=== PATIENT | male | born 1955 | race African-American/Black ===

== ENCOUNTER → 2017-03-08 | Outpatient (CLI) | payer OTHER ==
--- NOTE | 2017-03-08 10:24 | CT ---
EXAMINATION TYPE: CT hip LT wo con DATE OF EXAM: 03/08/2017 8:54 AM COMPARISON: NONE HISTORY: Lt hip pain CT DLP: 287.2 mGycm Automated exposure control for dose reduction was used. FINDINGS: There is a left hip pin present. 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 Advanced degenerative changes within the left hip within the [id number]. This would include s ubchondral cyst formation, Femoral head deformity, Loss of the joint space. IMPRESSION: ADVANCED DEGENERATIVE JOINT CHANGE LEFT HIP WITH SUBCHONDRAL CYST FORMATION, IRREGULARITY OF THE ACET ABULUM AND FEMORAL HEAD AND LOSS OF THE JOINT SPACE.
== END | disposition home or self-care (01) ==
LOC: RADCTMAIN 08:25
PROVIDERS: ATTEND Family Medicine
DX: M16.12 Unilateral primary osteoarthritis, left hip (principal); M25.852 Other specified joint disorders, left hip

== ENCOUNTER 2024-04-15 17:24 | Emergency (ER) | payer OTHER ==
[2024-04-15 18:13] VITALS: RESP 18; TEMP 98.2
--- NOTE | 2024-04-15 18:19 | ED ---
General Adult HPI - General Chief complaint: Fall Stated complaint: leg pain Time Seen by Provider: 04/15/24 18:16 Source: patient, EMS Mode of arrival: EMS Limitations: no limitations - History of Present Illness Initial comments: Patient presents to the ED by ambulance for evaluation status post mechanical fall. Patient states that he was cooking some meat this evening when he turned and his knees buckled and he felt them "crack", causing him to fall to the ground. Patient is currently complaining of having bilateral knee pain. Patient states that he has had right knee replacement surgery. Patient denies any other injury or site of pain, weakness or dizziness, syncope/LOC, head injury, headache, focal numbness/weakness/neuro deficit, neck/back/upper extremity/hip pain, chest pain, dyspnea, palpitations, abdominal pain, nausea or vomiting, or any other symptoms or complaints. Patient states that his tetanus is up-to-date. - Related Data Home Medications Medication Instructions Recorded Confirmed Gabapentin 300 mg PO QID PRN 11/05/14 01/22/15 Phenytoin Sodium Extended 100 mg PO DAILY 11/05/14 01/22/15 [Dilantin] traMADol HCL [Tramadol HCl] 50 mg PO Q6H PRN 11/05/14 01/22/15 Previous Rx's Medication Instructions Recorded Aspirin EC [Ecotrin] 325 mg PO DAILY #30 tablet. 12/12/14 Famotidine [Pepcid] 40 mg PO HS #30 tab 12/12/14 Metoprolol Succinate [Toprol XL] 25 mg PO DAILY #30 tab 12/12/14 Acetaminophen-Codeine 300-30mg 1 tab PO Q8H PRN #30 tablet 12/24/14 [Tylenol w/codeine #3] Omeprazole [PriLOSEC] 20 mg PO AC-BID #60 cap 12/24/14 Ondansetron Odt [Zofran ODT] 4 mg PO Q8HR PRN #30 tab 12/24/14 Sucralfate [Carafate] 1 gm PO BID #60 tablet 12/24/14 Allergies Allergy/AdvReac Type Severity Reaction Status Date / Time No Known Allergies Allergy Verified 01/22/15 10:18 Review of Systems ROS Statement: Those systems with pertinent positive or pertinent negative responses have been documented in the HPI. ROS Other: All systems not noted in ROS Statement are negative. Past Medical History Past Medical History: Chest Pain / Angina, Osteoarthritis (OA), Seizure Disorder, Skin Disorder Additional Past Medical History / Comment(s): last seizure March 2014, sore left third toe GOES TO [facility] WEEKLY ON TUESDAYS, ARTHRITIS,NEUROPATHY History of Any Multi-Drug Resistant Organisms: None Reported Past Surgical History: No Surgical Hx Reported Additional Past Surgical History / Comment(s): LEFT THIRD TOE DEBRIDEMENT Past Anesthesia/Blood Transfusion Reactions: No Reported Reaction Additional Past Anesthesia/Blood Transfusion Reaction / Comment(s): never has had anesthesia Past Psychological History: No Psychological Hx Reported Past Alcohol Use History: Occasional Past Drug Use History: None Reported - Past Family History Father Family Medical History: Myocardial Infarction (AR) Mother Family Medical History: No Reported History General Exam Limitations: no limitations General appearance: alert Head exam: Present: atraumatic, normocephalic Eye exam: Present: normal appearance, EOMI ENT exam: Present: mucous membranes moist Neck exam: Present: normal inspection, full ROM. Absent: tenderness Respiratory exam: Present: normal lung sounds bilaterally. Absent: respiratory distress, wheezes, rales, rhonchi, stridor, chest wall tenderness Cardiovascular Exam: Present: regular rate, normal rhythm, normal heart sounds, other (Normal radial and dorsalis pedis pulses bilaterally) GI/Abdominal exam: Present: soft. Absent: distended, tenderness, guarding Extremities exam: Present: other (Pelvis is stable and nontender; mild right knee tenderness; superficial abrasions are noted over the patient's left upper tibial region with surrounding tenderness; left lateral ankle swelling and tenderness; no left knee tenderness is noted on exam; patient has full ROM at bilateral hips and knees) Back exam: Present: normal inspection. Absent: tenderness Neurological exam: Present: alert, oriented X3. Absent: motor sensory deficit Skin exam: Present: warm, dry, normal color Course Vital Signs 04/15/24 17:51 Temperature 98.2 F Pulse Rate 85 Respiratory 18 Rate O2 Sat by Pulse 103 H Oximetry - Reevaluation(s) Reevaluation #1: 04/15/24 21:02 Case was discussed with [facility] transfer center. Ambulance transfer to the [facility] ED was accepted by ED physician, Dr. Escobar, and orthopedic surgeon, Dr. Forman. 04/15/24 21:16 Patient denies development of any new pain or symptoms while in the ED. Patient is aware of his test results, and he agrees with transfer to [facility] at this time for further evaluation and management of his fractures. EKG Findings - EKG Comments: EKG Findings:: ED physician interpretation (interpreted by me): Normal sinus rhythm, ventricular rate of 83 bpm, no ectopy, normal SD and QRS intervals, normal QT interval, normal axis, voltage criteria for LVH, inferior and a nterolateral T wave abnormality, no ST elevation Medical Decision Making - Medical Decision Making Was pt. sent in by a medical professional or institution (, PA, RN IV THERAPY, urgent care, hospital, or long-term...) When possible be specific @ -No Did you speak to anyone other than the patient for history (EMS, parent, family, police, friend...)? What history was obtained from this source @ -No Did you review nursing and triage notes (agree or disagree)? Why? @ -I reviewed and agree with nursing and triage notes Were old charts reviewed (outside hosp., previous admission, EMS record, old EKG, old radiological studies, urgent care reports/EKG's, long-term records)? Report findings @ -No old charts were reviewed Differential Diagnosis (chest pain, altered mental status, abdominal pain women, abdominal pain men, vaginal bleeding, weakness, fever, dyspnea, syncope, headache, dizziness, GI bleed, back pain, seizure, CVA, palpatations, mental health, musculoskeletal)? @ -Fall, fracture, sprain, strain, dislocation, contusion, abrasion EKG interpreted by me (3pts min.). @ -As above X-rays interpreted by me (1pt min.). @ -Pelvis, bilateral knee, bilateral tib/fib and left ankle x-rays were all reviewed myself. X-rays demonstrate comminuted fracture of = proximal left tibia, as well as fracture of the right distal femur. I agree with the radiologist's interpretations as above. CT interpreted by me (1pt min.). @ -None done U/S interpreted by me (1pt. min.). @ -None done What testing was considered but not performed or refused? (CT, X-rays, U/S, labs)? Why? @ -None What meds were considered but not given or refused? Why? @ -None Did you discuss the management of the patient with other professionals (professionals i.e. Dr., PA, RN IV THERAPY, lab, RT, psych nurse, social media developer, bacteriology research assistant, teacher, property disposal officer, onsite case manager)? Give summary @ -As above. Was smoking cessation discussed for >3mins.? @ -No Was critical care preformed (if so, how long)? @ -No Were there social determinants of health that impacted care today? How? (Homelessness, low income, unemployed, alcoholism, drug addiction, transportation, low edu. Level, literacy, decrease access to med. care, skilled nursing, rehab)? @ -No Was there de-escalation of care discussed even if they declined (Discuss DNR or withdrawal of care, Hospice)? DNR status @ -No What co-morbidities impacted this encounter? (DM, HTN, Smoking, COPD, CAD, Cancer, CVA, ARF, Chemo, Hep., AIDS, mental health diagnosis, sleep apnea, morbid obesity)? @ -None Was patient admitted / discharged? Hospital course, mention meds given and route, prescriptions, significant lab abnormalities, going to OR and other pertinent info. @ -X-rays demonstrate small left tibial fracture and distal right femur fracture. Patient is also noted to have moth-eaten appearing bone lesions concerning for possible metastatic disease. Given concern for pathologic fractures, will transfer the patient to a tertiary care facility. Patient reports that he has been followed by orthopedic surgery at [facility] in the past, so arrangements were made to transfer the patient there. Patient agrees with this plan. Patient will be placed in bilateral knee immobilizers prior to transfer. Undiagnosed new problem with uncertain prognosis? @ -No Drug Therapy requiring intensive monitoring for toxicity (Heparin, Nitro, Insulin, Cardizem)? @ -No Were any procedures done? @ -No Diagnosis/symptom? @ -Proximal left tibial fracture, distal right femur fracture Acute, or Chronic, or Acute on Chronic? @ -Acute Uncomplicated (without systemic symptoms) or Complicated (systemic symptoms)? @ -Default Side effects of treatment? @ -No Exacerbation, Progression, or Severe Exacerbation? @ -No Poses a threat to life or bodily function? How? (Chest pain, [place], AR, pneumonia, PE, COPD, DKA, ARF, appy, cholecystitis, CVA, Diverticulitis, Homicidal, Suicidal, threat to staff... and all critical care pts) @ -No - Lab Data Result diagrams: 04/15/24 18:13 04/15/24 18:13 Lab Results 04/15/24 04/15/24 04/15/24 Range/Units 18:13 18:13 18:13 WBC 6.8 (3.8-10.6) k/uL RBC 2.97 L (4.30-5.90) m/uL Hgb 9.9 L (13.0-17.5) gm/dL Hct 30.4 L (39.0-53.0) % MCV 102.3 H (80.0-100.0) fL MCH 33.3 (25.0-35.0) pg MCHC 32.5 (31.0-37.0) g/dL RDW 13.1 (11.5-15.5) % Plt Count 192 (150-450) k/uL MPV 9.3 Neutrophils % 65 % Lymphocytes % 26 % Monocytes % 6 % Eosinophils % 0 % Basophils % 1 % Neutrophils # 4.4 (1.3-7.7) k/uL Lymphocytes # 1.8 (1.0-4.8) k/uL Monocytes # 0.4 (0-1.0) k/uL Eosinophils # 0.0 (0-0.7) k/uL Basophils # 0.0 (0-0.2) k/uL Macrocytosis Slight PT (10.0-12.5) sec INR (<1.2) APTT (22.0-30.0) sec Sodium 135 L (137-145) mmol/L Potassium 3.5 (3.5-5.1) mmol/L Chloride 89 L (98-107) mmol/L Carbon Dioxide 29 (22-30) mmol/L Anion Gap 17 mmol/L BUN 16 (9-20) mg/dL Creatinine 1.40 H (0.66-1.25) mg/dL Est GFR (CKD-EPI)AfAm 60 (>60 ml/min/1.73 sqM) Est GFR (CKD-EPI)NonAf 51 (>60 ml/min/1.73 sqM) Glucose 100 H (74-99) mg/dL Calcium 8.2 L (8.4-10.2) mg/dL Troponin I <0.012 (0.000-0.034) ng/mL 04/15/24 Range/Units 19:23 WBC (3.8-10.6) k/uL RBC (4.30-5.90) m/uL Hgb (13.0-17.5) gm/dL Hct (39.0-53.0) % MCV (80.0-100.0) fL MCH (25.0-35.0) pg MCHC (31.0-37.0) g/dL RDW (11.5-15.5) % Plt Count (150-450) k/uL MPV Neutrophils % % Lymphocytes % % Monocytes % % Eosinophils % % Basophils % % Neutrophils # (1.3-7.7) k/uL Lymphocytes # (1.0-4.8) k/uL Monocytes # (0-1.0) k/uL Eosinophils # (0-0.7) k/uL Basophils # (0-0.2) k/uL Macrocytosis PT 11.0 (10.0-12.5) sec INR 1.0 (<1.2) APTT 25.3 (22.0-30.0) sec Sodium (137-145) mmol/L Potassium (3.5-5.1) mmol/L Chloride (98-107) mmol/L Carbon Dioxide (22-30) mmol/L Anion Gap mmol/L BUN (9-20) mg/dL Creatinine (0.66-1.25) mg/dL Est GFR (CKD-EPI)AfAm (>60 ml/min/1.73 sqM) Est GFR (CKD-EPI)NonAf (>60 ml/min/1.73 sqM) Glucose (74-99) mg/dL Calcium (8.4-10.2) mg/dL Troponin I (0.000-0.034) ng/mL - Radiology Data Pelvis x-ray: 1. No acute osseous abnormality radiographically apparent. 2. Advanced degenerative changes. Bilateral knee x-rays: 1. Fracture of the distal metaphyseal right femur. 2. Comminuted fracture of the proximal metadiaphyseal left tibia. Right tib/fib x-rays: 1. No acute osseous abnormality right tibia and fibula. Left tib/fib x-rays: 1. Comminuted fracture proximal tibial metadiaphysis. 2. A moth-eaten appearance to the tibia and fibula. Underlying metastasis should be considered. Left ankle x-rays: 1. No acute fracture identified. 2. There appears to be some cortical elevation in walking appearance. Underlying metastases should be considered. Disposition Clinical Impression: Fall, Left tibial fracture, Right femoral fracture, Bone lesion Disposition: OTHER INSTITUTION NOT DEFINED Condition: Stable Is patient prescribed a controlled substance at d/c from ED?: No Referrals: Abner Sanchez MD [Primary Care Provider] - 1-2 days Time of Disposition: 21:02 - Out of Hospital Transfer - Req. Specs Out of Hospital Transfer - Requested Specifics: Other Emergency Center ([facility])
[2024-04-15 18:45] LABS: Basophils % (A) 1 %; Eosinophils % (A) 0 %; HCT 30.4 % (39.0-53.0); HGB 9.9 gm/dL (13.0-17.5); Lymphocytes # (A) 1.8 k/uL (1.0-4.8); Lymphocytes % (A) 26 %; MCH 33.3 pg (25.0-35.0); MCHC 32.5 g/dL (31.0-37.0); MCV 102.3 fL (80.0-100.0); Macrocytosis Slight; Mean Platelet Volume 9.3; Monocytes # (A) 0.4 k/uL (0-1.0); Monocytes % (A) 6 %; Neutrophils # (A) 4.4 k/uL (1.3-7.7); Neutrophils % (A) 65 %; Platelet Count 192 k/uL (150-450); RBC 2.97 m/uL (4.30-5.90); RDW 13.1 % (11.5-15.5); WBC 6.8 k/uL (3.8-10.6)
[2024-04-15 18:51] LABS: African American GFR (CKD) 60 (>60 ml/min/1.73 sqM); Anion Gap 17 mmol/L; Blood Urea Nitrogen 16 mg/dL (9-20); Calcium 8.2 mg/dL (8.4-10.2); Carbon Dioxide 29 mmol/L (22-30); Chloride 89 mmol/L (98-107); Glucose 100 mg/dL (74-99); Non-African American GFR(CKD) 51 (>60 ml/min/1.73 sqM); Potassium 3.5 mmol/L (3.5-5.1); Sodium 135 mmol/L (137-145)
[2024-04-15 19:47] LABS: Partial Thromboplastin Time 25.3 sec (22.0-30.0)
[2024-04-15] MEDS: HYDROmorphone 1 MG/ML 1 ML SYRINGE IVP STA ×2 (19:47→21:39)
--- NOTE | 2024-04-15 20:15 | XR ---
EXAMINATION TYPE: XR pelvis AP view DATE OF EXAM: 04/15/2024 COMPARISON: None HISTORY: Fall, pain TECHNIQUE: AP pelvis FINDINGS: There is a prior left hip pinning. There are advanced degenerative hip changes bilaterally. No acute fractures identified. Sacroiliac joints and symphysis pubis are normal. Fecal debris is with in the rectum. IMPRESSION: 1. No acute osseous abnormality radiographically apparent. 2. Advanced degenerative changes.
--- NOTE | 2024-04-15 20:17 | XR ---
EXAMINATION TYPE: XR tibia fibula LT DATE OF EXAM: 04/15/2024 COMPARISON: None HISTORY: Fall, pain TECHNIQUE: Left tibia and fibula is examined in 2 projections. FINDINGS: There is a comminuted fracture of the proximal metadiaphyseal tibia. There appears to be a moth-eaten appearance to the osseous structures. Increased calcification is within the proximal and d istal metaphysis could be some hilar medullary infarct. Vascular calcification is noted IMPRESSION: 1. Comminuted fracture proximal tibial metadiaphysis. 2. A moth-eaten appearance to the tibia and fibula. Underlying metastasis should be considered.
--- NOTE | 2024-04-15 20:22 | XR ---
EXAMINATION TYPE: XR knee complete bilateral DATE OF EXAM: 04/15/2024 COMPARISON: Bilateral knees HISTORY: Fall TECHNIQUE: Bilateral knees are examined in 3 projections each. FINDINGS: Right knee: There is a tibial and femoral component. Large calcifications within the distal femoral metaphysis may be prior bone infarct. There is a transverse fracture of the distal metaphyseal femur. This is slightly shifted and third sh aft width laterally and anteriorly. Left knee: There is a comminuted fracture in the proximal metadiaphyseal tibia. Subtle proximal trans verse fracture of the fibular diaphysis may be present. Fluid fluid level is present on the crosstabl e lateral view of the knee joint space. IMPRESSION: 1. Fracture of the distal metaphyseal right femur. 2. Comminuted Fracture of the proximal metadiaphyseal left tibia
--- NOTE | 2024-04-15 20:26 | XR ---
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 Structures kuldeep ear somewhat 1 the. There is some mild elevation of the cortex. Underlying static disease may be pres ent Ankle mortise appears intact. No acute fractures identified. Vascular calcifications present. IMPRESSION: 1. No acute fracture identified. 2. There appears to be some cortical elevation in walking appearance. Underlying Metastases should be considered.
--- NOTE | 2024-04-15 20:29 | XR ---
EXAMINATION TYPE: XR tibia fibula RT DATE OF EXAM: 04/15/2024 COMPARISON: None HISTORY: Fall pain TECHNIQUE: 2 view right tibia and fibula FINDINGS: Tibial and femoral components are present. The distal right femoral metaphyseal fracture is at the edge of the [id number]. Tibia and fibula appear intact. Vascular calcification is present. There appears to be some fusion th rough the distal tibial fibular structures. Ankle mortise appears intact. IMPRESSION: 1. No acute osseous abnormality right tibia and fibula.
[2024-04-15 22:19] VITALS: BP 157/75; PULSE 73
== END 2024-04-15 21:50 | disposition other institution (70) ==
LOC: EC 17:24
DX: S82.202A Unspecified fracture of shaft of left tibia, initial encounter for closed fracture (principal); S72.91XA Unspecified fracture of right femur, initial encounter for closed fracture; W18.30XA Fall on same level, unspecified, initial encounter
CPT/HCPCS: 36415; 93005; 80048; 84484; 85025; 85610; 85730; 73562; 72170; 73590 ×2; 73610; 99285; 96374; 96376; J1170